=== PATIENT | female | born 1985 | race Caucasian/White ===

== ENCOUNTER 2018-08-25 15:55 | Emergency (ER) | payer OTHER ==
[2018-08-25 18:35] LABS: ABS Basophils 0.1 10^3/ul (0-0.2); ABS Eosinophils 0.2 10^3/ul (0-0.6); ABS Lymphocytes 1.7 10^3/ul (1.0-4.8); ABS Monocytes 0.4 10^3/ul (0-0.8); ABS Neutrophils 2.2 10^3/ul (1.5-7.7); ABS Nucleated RBC 0 10^3/ul; Eosinophil % 3.4 % (0-6); Hematocrit 30 % (35-47); Lymphocyte % 38.3 % (25-47); Mean Corpuscular HGB Conc 34 g/dl (31-36); Mean Corpuscular Hemoglobin 26 pg (27-31); Mean Corpuscular Volume 77 fL (80-97); Mean Platelet Volume 7.4 um3 (7.4-10.4); Nucleated Red Blood Cells % 0; Platelet Count 187 10^3/ul (150-450); Red Blood Count 3.87 10^6/ul (4.00-5.40); Red Cell Distribution Width 15 % (10.5-15); White Blood Count 4.6 10^3/ul (3.5-10.8)
[2018-08-25 18:44] LABS: INR 0.95 (0.77-1.02)
[2018-08-25] MEDS ORDERED: Ibuprofen TAB* 600 MG PO ONE (18:44)
[2018-08-25] MEDS ORDERED: NS 0.9% 1000 ML* 1,000 ML IV ONE (18:45)
[2018-08-25 18:53] LABS: EGFR Non-African American 89.8 (>60)
[2018-08-25 19:03] LABS: Urine Appearance Cloudy; Urine Blood Negative (Negative); Urine Color Amber; Urine Ketones Negative (Negative); Urine Protein 1+(30 mg/dL) (Negative); Urine Red Blood Cell 2+(6-10/hpf) (Absent); Urine Specific Gravity 1.024 (1.010-1.030); Urine Urobilinogen Positive (Negative); Urine White Blood Cell Trace(0-5/hpf) (Absent)
--- NOTE | 2018-08-25 20:46 | ED ---
GI/ HPI - HPI Summary HPI Summary: Patient from [facility] complains of heavy vaginal bleeding 2 days with associated abdominal cramping cramping his mid lower abdomen, intermittent, varying in intensity. No active sternal pain here in the ED. History of irregular menses , states she has not had her period in years. Patient states she is using one tampon and one pad per hour. History denies fever, cough, sore throat, CP, SOB , N/V/D, change in urine, change in BM, vaginal pain. Medical history is none. Abdominal surgical history is none. Not sexually active. - History of Current Complaint Chief Complaint: EDVaginalBleeding Time Seen by Provider: 08/25/18 18:21 Stated Complaint: VAGINAL BLEEDING Hx Obtained From: Patient Onset/Duration: Started Days Ago Timing: Intermittent Severity: Moderate Current Severity: Mild Vaginal Bleeding Description: Brownish-Red Pain Intensity: 5 Location of Pain: Suprapubic Pain Characteristics: Colicy, Cramping Associated Signs and Symptoms: Negative: Back Pain - Allergy/Home Medications Allergies/Adverse Reactions: Allergies Allergy/AdvReac Type Severity Reaction Status Date / Time Sulfa (Sulfonamide Allergy Hives Verified 08/25/18 16:01 Antibiotics) PMH/Surg Hx/FS Hx/Imm Hx Endocrine/Hematology History: Denies: Hx Anticoagulant Therapy Cardiovascular History: Denies: Hx Cardiac Arrest History: Denies: Hx Dialysis Neurological History: Denies: Hx CVA Infectious Disease History: No Infectious Disease History: Denies: Traveled Outside the [place] in Last 30 Days - Social History Alcohol Use: None Substance Use Type: Reports: Prescribed Substance Use Comment - 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 Triage Information Reviewed: Yes Vital Signs On Initial Exam: Initial Vitals Temp Pulse Resp BP Pulse Ox 97 F 69 16 138/83 99 08/25/18 15:57 08/25/18 15:57 08/25/18 15:57 08/25/18 15:57 08/25/18 15:57 Vital Signs Reviewed: Yes Appearance: Positive: Well-Appearing Skin: Positive: Warm Head/Face: Positive: Normal Head/Face Inspection Eyes: Positive: Normal Neck: Positive: Supple Respiratory/Lung Sounds: Positive: Clear to Auscultation Cardiovascular: Positive: Normal Abdomen Description: Positive: Nontender Pelvic Exam: Positive: External Exam Normal, No Cerv. Motion Tender, No Masses, Blood - Minimal brownish red blood in vaginal vault. No active bleeding from cervix., Tender Adnexa - Mildly tender left adnexa.. Negative: Active Bleeding , Discharge, Lesions, Mass, Tender w/ Cervical Motion Musculoskeletal: Positive: Normal Neurological: Positive: Normal Psychiatric: Positive: Normal AVPU Assessment: Alert - [place] Coma Scale Best Eye Response: 4 - Spontaneous Best Motor Response: 6 - Obeys Commands Best Verbal Response: 5 - Oriented Coma Scale Total: 15 Diagnostics - Vital Signs Vital Signs Temp Pulse Resp BP Pulse Ox 08/25/18 18:16 97.7 F 69 16 148/77 97 08/25/18 15:57 97 F 69 16 138/83 99 - Laboratory Lab Results: Lab Results 08/25/18 08/25/18 08/25/18 Range/Units 18:29 18:29 18:29 WBC 4.6 (3.5-10.8) 10^3/ul RBC 3.87 L (4.00-5.40) 10^6/ul Hgb 10.0 L (12.0-16.0) g/dl Hct 30 L (35-47) % MCV 77 L (80-97) fL MCH 26 L (27-31) pg MCHC 34 (31-36) g/dl RDW 15 (10.5-15) % Plt Count 187 (150-450) 10^3/ul MPV 7.4 (7.4-10.4) um3 Neut % (Auto) 47.7 (38-83) % Lymph % (Auto) 38.3 (25-47) % [place] % (Auto) 9.4 H (0-7) % Eos % (Auto) 3.4 (0-6) % Baso % (Auto) 1.2 (0-2) % Absolute Neuts (auto) 2.2 (1.5-7.7) 10^3/ul Absolute Lymphs (auto) 1.7 (1.0-4.8) 10^3/ul Absolute Monos (auto) 0.4 (0-0.8) 10^3/ul Absolute Eos (auto) 0.2 (0-0.6) 10^3/ul Absolute Basos (auto) 0.1 (0-0.2) 10^3/ul Absolute Nucleated RBC 0 10^3/ul Nucleated RBC % 0 INR (Anticoag Therapy) 0.95 (0.77-1.02) APTT 32.6 (26.0-36.3) seconds Sodium 136 (135-145) mmol/L Potassium 3.8 (3.5-5.0) mmol/L Chloride 104 (101-111) mmol/L Carbon Dioxide 27 (22-32) mmol/L Anion Gap 5 (2-11) mmol/L BUN 14 (6-24) mg/dL Creatinine 0.74 (0.51-0.95) mg/dL Est GFR ( Amer) 108.7 (>60) Est GFR (Non-Af Amer) 89.8 (>60) BUN/Creatinine Ratio 18.9 (8-20) Glucose 102 H (70-100) mg/dL Calcium 9.0 (8.6-10.3) mg/dL Total Bilirubin 0.40 (0.2-1.0) mg/dL AST 26 (13-39) U/L ALT 13 (7-52) U/L Alkaline Phosphatase 70 (34-104) U/L Total Protein 7.4 (6.4-8.9) g/dL Albumin 4.0 (3.2-5.2) g/dL Globulin 3.4 (2-4) g/dL Albumin/Globulin Ratio 1.2 (1-3) Lipase 15 (11.0-82.0) U/L Beta HCG, Quant < 0.60 mIU/mL Urine Color Urine Appearance Urine pH (5-9) Ur Specific [place] (1.010-1.030) Urine Protein (Negative) Urine Ketones (Negative) Urine Blood (Negative) Urine Nitrate (Negative) Urine Bilirubin (Negative) Urine Urobilinogen (Negative) Ur Leukocyte Esterase (Negative) Urine WBC (Auto) (Absent) Urine RBC (Auto) (Absent) Ur Squamous Epith Cells (Absent) Urine Bacteria (Absent) Urine Glucose (Negative) 10/26/18 Range/Units 18:32 WBC (3.5-10.8) 10^3/ul RBC (4.00-5.40) 10^6/ul Hgb (12.0-16.0) g/dl Hct (35-47) % MCV (80-97) fL MCH (27-31) pg MCHC (31-36) g/dl RDW (10.5-15) % Plt Count (150-450) 10^3/ul MPV (7.4-10.4) um3 Neut % (Auto) (38-83) % Lymph % (Auto) (25-47) % [place] % (Auto) (0-7) % Eos % (Auto) (0-6) % Baso % (Auto) (0-2) % Absolute Neuts (auto) (1.5-7.7) 10^3/ul Absolute Lymphs (auto) (1.0-4.8) 10^3/ul Absolute Monos (auto) (0-0.8) 10^3/ul Absolute Eos (auto) (0-0.6) 10^3/ul Absolute Basos (auto) (0-0.2) 10^3/ul Absolute Nucleated RBC 10^3/ul Nucleated RBC % INR (Anticoag Therapy) (0.77-1.02) APTT (26.0-36.3) seconds Sodium (135-145) mmol/L Potassium (3.5-5.0) mmol/L Chloride (101-111) mmol/L Carbon Dioxide (22-32) mmol/L Anion Gap (2-11) mmol/L BUN (6-24) mg/dL Creatinine (0.51-0.95) mg/dL Est GFR ( Amer) (>60) Est GFR (Non-Af Amer) (>60) BUN/Creatinine Ratio (8-20) Glucose (70-100) mg/dL Calcium (8.6-10.3) mg/dL Total Bilirubin (0.2-1.0) mg/dL AST (13-39) U/L ALT (7-52) U/L Alkaline Phosphatase (34-104) U/L Total Protein (6.4-8.9) g/dL Albumin (3.2-5.2) g/dL Globulin (2-4) g/dL Albumin/Globulin Ratio (1-3) Lipase (11.0-82.0) U/L Beta HCG, Quant mIU/mL Urine Color Ne Urine Appearance Cloudy Urine pH 7.0 (5-9) Ur Specific [place] 1.024 (1.010-1.030) Urine Protein 1+(30 mg/dl) A (Negative) Urine Ketones Negative (Negative) Urine Blood Negative (Negative) Urine Nitrate Negative (Negative) Urine Bilirubin Negative (Negative) Urine Urobilinogen Positive A (Negative) Ur Leukocyte Esterase Negative (Negative) Urine WBC (Auto) Trace(0-5/hpf) (Absent) Urine RBC (Auto) 2+(6-10/hpf) A (Absent) Ur Squamous Epith Cells Present A (Absent) Urine Bacteria Absent (Absent) Urine Glucose Negative (Negative) Result Diagrams: 08/25/18 18:29 08/25/18 18:29 Lab Statement: Any lab studies that have been ordered have been reviewed, and results considered in the medical decision making process. GIGU Course/Dx - Course Course Of Treatment: Patient from [facility] complains of heavy vaginal bleeding 2 days with associated abdominal cramping cramping his mid lower abdomen, intermittent, varying in intensity. No active sternal pain here in the ED. History of irregular menses, states she has not had her period in years. Patient states she is using one tampon and one pad per hour. History denies fever, cough, sore throat, CP, SOB, N/V/D, change in urine, change in BM, vaginal pain. Medical history is none. Abdominal surgical history is none. Not sexually active. physical exam:Abdomen soft nontender in all quadrants. Cultures from vaginal exam pending. No bright red bleeding or active bleeding from vaginal canal. Hemoglobin stable at 10. Microcytic anemia. Rx for ferrous sulfate 325 mg by mouth daily. Follow-up with primary care. Follow-up with gynecology for dysfunctional uterine bleeding. - Diagnoses Provider Diagnoses: Vaginal bleeding, Microcytic anemia Discharge - Sign-Out/Discharge Documenting (check all that apply): Patient Departure - Discharge Plan Condition: Stable Disposition: HOME Prescriptions: Ferrous Sulfate TAB* 325 mg PO DAILY 30 Days #30 tab Patient Education Materials: Dysfunctional Uterine Bleeding (ED), Iron Deficiency Anemia (ED), Anemia (ED) Referrals: No Primary Care Phys,NOPCP [Primary Care Provider] - Olga Comer MD [Medical Doctor] - Additional Instructions: Little up with gynecology Dr. Comer for further evaluation of vaginal bleeding. Follow with primary care for further evaluation of likely iron deficient anemia. Return to the ED for any new or worsening symptoms - Billing Disposition and Condition Condition: STABLE Disposition: Home
[2018-08-25 20:56] VITALS: BP 121/70
--- NOTE | 2018-08-28 18:05 | ED ---
Progress - Progress Note Progress Note: Patient's final vaginal culture reveals Gardnerella. She was seen for dysfunctional uterine bleeding and had adnexal tenderness on exam. No antibiotic for prescribed. Attempted to contact patient who resides at [facility] ( [facility]). Left message to call. Will also mail letter. radha Makrk aware. Course/Dx - Course Course Of Treatment: Patient from [facility] [employer] complains of heavy vaginal bleeding 2 days with associated abdominal cramping cramping his mid lower abdomen, intermittent, varying in intensity. No active sternal pain here in the ED. History of irregular menses, states she has not had her period in years. Patient states she is using one tampon and one pad per hour. History denies fever, cough, sore throat, CP, SOB, N/V/D, change in urine, change in BM, vaginal pain. Medical history is none. Abdominal surgical history is none. Not sexually active. physical exam:Abdomen soft nontender in all quadrants. Cultures from vaginal exam pending. No bright red bleeding or active bleeding from vaginal canal. Hemoglobin stable at 10. Microcytic anemia. Rx for ferrous sulfate 325 mg by mouth daily. Follow-up with primary care. Follow-up with gynecology for dysfunctional uterine bleeding. - Diagnoses Provider Diagnoses: Vaginal bleeding, Microcytic anemia Discharge - Sign-Out/Discharge Documenting (check all that apply): Post-Discharge Follow Up - Discharge Plan Condition: Stable Disposition: HOME Prescriptions: Ferrous Sulfate TAB* 325 mg PO DAILY 30 Days #30 tab Patient Education Materials: Dysfunctional Uterine Bleeding (ED), Iron Deficiency Anemia (ED), Anemia (ED) Referrals: Olga Comer MD [Medical Doctor] - No Primary Care Phys,NOPCP [Primary Care Provider] - Additional Instructions: Little up with gynecology Dr. Comer for further evaluation of vaginal bleeding. Follow with primary care for further evaluation of likely iron deficient anemia. Return to the ED for any new or worsening symptoms - Billing Disposition and Condition Condition: STABLE Disposition: Home
== END 2018-08-25 20:55 | disposition home or self-care (01) ==
LOC: ED 15:55
DX: N93.9 Abnormal uterine and vaginal bleeding, unspecified (principal); D50.9 Iron deficiency anemia, unspecified; F17.200 Nicotine dependence, unspecified, uncomplicated; Z88.2 Allergy status to sulfonamides
CPT/HCPCS: 36415; 80053; 81003; 81015; 83690; 84702; 85025; 85610; 85730; 87086; 87480; 87491; 87510; 87591; 87661; 96360; 99283; A9270-GY